=== PATIENT | female | born 1960 | race Caucasian/White ===

== ENCOUNTER 2019-01-25 12:43 | Outpatient (RCR) | payer BC, SELFPAY ==
[2019-01-25 12:57] VITALS: BMI 34.0
== END 2019-04-25 23:59 | disposition home or self-care (01) ==
LOC: ANHDMC 12:43
PROVIDERS: PCP Family Medicine; Visit Provider Surgery
DX: E11.65 Type 2 diabetes mellitus with hyperglycemia (principal); Z71.3 Dietary counseling and surveillance
CPT/HCPCS: 97802

== ENCOUNTER 2019-08-28 00:25 | Outpatient (CLI) | payer BC, SELFPAY ==
[2019-08-28 18:55] LABS: SARS-CoV-2 RNA PCR Negative
== END 2019-08-28 00:26 | disposition home or self-care (01) ==
LOC: ANHCOVIDDT 00:25
PROVIDERS: PCP Family Medicine; Visit Provider Internal Medicine Gastroenterology
DX: Z01.818 Encounter for other preprocedural examination (principal); Z11.59 Encounter for screening for other viral diseases; Z12.11 Encounter for screening for malignant neoplasm of colon
CPT/HCPCS: 87635; C9803; U0003

== ENCOUNTER 2019-08-30 00:49 | Day surgery (SDC) | payer BC, SELFPAY ==
[2019-08-23 13:24] VITALS: BMI 32.4
--- NOTE | 2019-08-30 08:29 | WPDANESEPPF ---
Anes - Initial Pre Proc Eval Procedure: Operation Date: 08/30/19 10:30 Proposed Procedures p Screening Colonoscopy - Mario Moore MD Date/Time: 08/30/19 08:29 Surgeon: Mario Moore MD Pre Op Diagnosis: Neoplasm Screening Patient Data Age: 59 Gender: F Height: 1.7 m Weight: 94 kg Allergies Allergy/AdvReac Type Severity Reaction Status Date / Time No Known Allergies Allergy Verified 08/30/19 09:49 Home Medications Medication Instructions Recorded Confirmed Type exemestane [Aromasin] 25 mg PO DAILY 08/23/19 08/30/19 History levothyroxine [Synthroid] 88 mcg PO DAILY 08/23/19 08/30/19 History ej-qmy-dutok acid-lutein [Adult 1 tablet PO DAILY 08/23/19 08/30/19 History Multivitamin (w-lutein)] Patient hx anesthesia problems: none Family hx anesthesia problems: none PMFSH Past Medical History Medical History (Updated 08/30/19 @ 08:30 by Edwin iKm MD) Cancer breast cancer Diabetes Hypothyroidism Obesity Social History Social History Gender identity (if verbalized by the patient): Female Sexual Orientation (if Verbalized by the Patient): Straight or Heterosexual Spiritual care concerns: No Anes - Eval Final PreProcedure Day of Procedure 08/30/19 08:29 Patient weight: obese Heart: regular rate and rhythm Lungs: clear to auscultation and normal air movement Airway: Mallampati scale class II Neurological: alert and oriented Last oral intake: >/= 8 hours ASA classification: III Emergent: no Anesthetic plan: proceed Anesthesia type and monitoring: general GIVS Informed Consent: The patient's anesthetic plan and its attendant risks and benefits were discussed with the patient/family/POA. Questions were solicited and answers provided to the satisfaction of the patient/family/POA.
[2019-08-30 09:40] VITALS: BP 183/85; PULSE 77; RESP 18; TEMP 36.8; O2SAT 100
[2019-08-30] MEDS: LACTATED RINGERS 1,000 ML 150 ML IV CONT (10:03)
[2019-08-30 10:06] LABS: Glucose Point of Care 93 (65-105)
--- NOTE | 2019-08-30 10:58 | WPDGICN ---
Assessment and Plan Assessment and plan (1) Encounter for screening for colorectal malignant neoplasm: Code(s): Z12.11 - Encounter for screening for malignant neoplasm of colon; Z12.12 - Encounter for screening for malignant neoplasm of rectum Status: Acute Assessment and Plan: plan is for screening colonoscopy today because of age. Also because of family history of colon polyps in mother. Plan is for colonoscopy today may need to repeat colonoscopy in 5 years given her family history of colon polyps. (2) Family history of colonic polyps: Code(s): Z83.71 - Family history of colonic polyps Status: Acute (3) Obesity: Code(s): E66.9 - Obesity, unspecified Status: Acute GI Consult Note Consult date/time: 08/30/19 10:58 HPI: Laureen Thurston is a 59 year old female Seen in evaluation at the request of Dr Albert Palafox. patient presents for neoplasia screening colonoscopy. Her current weight appetite bowel movements are normal. She denies abdominal pain she denies any obvious bleeding. Her bowel habits are regular. Family history is significant that her mother had colon polyps. Patient's past medical history is significant for breast cancer in the past. Review of Systems Review of Systems: All systems reviewed & are unremarkable except as noted in HPI and below PMFSH Past Medical History Medical History Cancer breast cancer Diabetes Hypothyroidism Obesity Social History Social History Gender identity (if verbalized by the patient): Female Sexual Orientation (if Verbalized by the Patient): Straight or Heterosexual Spiritual care concerns: No Meds Home Medications and Allergies Home Medications Medication Instructions Recorded Confirmed Type exemestane [Aromasin] 25 mg PO DAILY 08/23/19 08/30/19 History levothyroxine [Synthroid] 88 mcg PO DAILY 08/23/19 08/30/19 History rr-bby-gtvpe acid-lutein [Adult 1 tablet PO DAILY 08/23/19 08/30/19 History Multivitamin (w-lutein)] Allergies Allergy/AdvReac Type Severity Reaction Status Date / Time No Known Allergies Allergy Verified 08/30/19 09:49 Vital Signs Vital Signs - 24 hr 08/30/19 09:40 Temperature 36.8 C Pulse Rate 77 Respiratory Rate 18 Blood Pressure 183/85 H Pulse Oximetry 100 Exam Narrative: Exam Narrative: Physical exam reveals patient to be alert. Vital signs stable. HEENT exam unremarkable. Lungs are clear to auscultation and percussion. Heart is without murmur or extra sounds. Abdominal exam bowel sounds are present soft nontender with no organomegaly. Digital external rectal exam normal.
[2019-08-30 11:25] VITALS: BP 123/65; PULSE 72; RESP 14; O2SAT 100
[2019-08-30 11:35] VITALS: BP 133/74; PULSE 71; RESP 18; O2SAT 100
[2019-08-30 11:45] VITALS: BP 123/78; PULSE 71; RESP 21; O2SAT 100
[2019-08-30 11:54] VITALS: BP 138/74; PULSE 72; RESP 14; O2SAT 100
== END 2019-08-30 12:04 | disposition home or self-care (01) ==
PROVIDERS: PCP Family Medicine; Visit Provider Internal Medicine Gastroenterology
PROC: 0DJD8ZZ Inspection of Lower Intestinal Tract, Via Natural or Artificial Opening Endoscopic (ICD-10-PCS; CPT 45378; principal; 2019-08-30 10:30)
DX: Z12.11 Encounter for screening for malignant neoplasm of colon (principal); K63.5 Polyp of colon; K64.8 Other hemorrhoids; Z83.71 Family history of colonic polyps; E11.9 Type 2 diabetes mellitus without complications; E03.9 Hypothyroidism, unspecified; E66.9 Obesity, unspecified; Z68.32 Body mass index [BMI] 32.0-32.9, adult; C50.919 Malignant neoplasm of unspecified site of unspecified female breast; Z79.818 Long term (current) use of other agents affecting estrogen receptors and estrogen levels
CPT/HCPCS: 45385; 88305; J2704; J7120

== ENCOUNTER → 2021-05-01 13:12 | Outpatient (CLI) | payer BC, SELFPAY ==
--- NOTE | ~2021-05-01 | DEXA_ITS ---
Bone Density Report Name: CRISTINA WORTHY Age: 61 Sex: Female Ethnicity: White Date of : 1960 Indication: postmenopausal; screening for osteoporosis; parental hip fracture; height loss; cancer; Referring Provider: JOHAN, ARNOLD Study: Bone densitometry was performed. Exam Date: May 01, 2021 Accession number: [id number] Bone Density: Region BMD T-score Z-score Classification AP Spine (L1-L4) 1.120 0.7 2.2 Normal Femoral Neck (Left) 0.671 -1.6 -0.2 Osteopenia Total Hip (Left) 0.967 0.2 1.3 Normal Femoral Neck (Right) 0.714 -1.2 0.2 Osteopenia Total Hip (Right) 0.936 0.0 1.0 Normal Total Hip Mean 0.952 0.1 1.2 Normal World Health Organization criteria for BMD impression classify patients as: Normal (T-score at or above -1.0), Osteopenia (T-score between -1.0 and -2.5), or Osteoporosis (T-score at or below -2.5). 10-year Fracture Risk(1): Major Osteoporotic Fracture 16% Hip Fracture 0.8% Reported Risk Factors: [place] (), Neck BMD=0.671, BMI=37.2, parental fracture (1) FRAX(R) Version 3.08. Fracture probability calculated for an untreated patient. Fracture probability may be lower if the patient has received treatment. Previous Exams: Region Exam Age BMD T-score BMD Change BMD Change Date g/cm2 vs Baseline vs Previous AP Spine(L1-L4) 05/01/2021 61 1.120 0.7 0.039* 0.039* 01/20/2017 56 1.081 0.3 Total Hip(Left) 05/01/2021 61 0.967 0.2 0.006 0.021 01/25/2019 58 0.946 0.0 -0.015 -0.015 01/20/2017 56 0.961 0.2 Total Hip(Right) 05/01/2021 61 0.936 0.0 -0.007 0.029* 01/25/2019 58 0.908 -0.3 -0.035* -0.035* 01/20/2017 56 0.943 0.0 *Denotes significance at 95% confidence level, LSC for AP Spine = 0.022 g/cm2, LSC for Total Hip = 0.027 g/cm2 Clinical Information Provided by Patient: Parent has had a hip fracture Has used the following medications: Vitamin D, Calcium Has the following medical conditions: Cancer Patient maximum height was 68.5 Menopause Age: 49 No regular weight bearing exercise Drinks caffeinated beverages Onset of menses at age 12 Number of children 1 Impression: The patient has low bone mass, based on the Left Femoral Neck T-score. The patient has an estimated ten-year risk of hip fracture of 0.8% and an estimated ten-year risk of major fracture of 16%, based on
== END ==
PROVIDERS: PCP Family Medicine; Visit Provider Nurse Practitioner
DX: Z78.0 Asymptomatic menopausal state (principal); M85.852 Other specified disorders of bone density and structure, left thigh; M85.851 Other specified disorders of bone density and structure, right thigh
CPT/HCPCS: 77080

== ENCOUNTER 2023-07-22 13:08 | Outpatient (CLI) | payer OTHER, SELFPAY ==
--- NOTE | ~2023-07-22 | DEXA_ITS ---
Bone Density Report Name: CRISTINA WORTHY Age: 63 Sex: Female Ethnicity: White Date of : 1960 Indication: postmenopausal; screening for osteoporosis; parental hip fracture; height loss; Referring Provider: JOHAN, ARNOLD Study: Bone densitometry was performed. Exam Date: July 22, 2023 Accession number: [id number] Bone Density: Region BMD T-score Z-score Classification AP Spine (L1-L4) 1.062 0.1 1.9 Normal Femoral Neck (Left) 0.648 -1.8 -0.3 Osteopenia Total Hip (Left) 0.966 0.2 1.4 Normal Femoral Neck (Right) 0.715 -1.2 0.3 Osteopenia Total Hip (Right) 0.944 0.0 1.2 Normal Total Hip Mean 0.955 0.1 1.3 Normal World Health Organization criteria for BMD impression classify patients as: Normal (T-score at or above -1.0), Osteopenia (T-score between -1.0 and -2.5), or Osteoporosis (T-score at or below -2.5). 10-year Fracture Risk(1): Major Osteoporotic Fracture 17% Hip Fracture 1.0% Reported Risk Factors: [place] (), Neck BMD=0.648, BMI=35.5, parental fracture (1) FRAX(R) Version 3.08. Fracture probability calculated for an untreated patient. Fracture probability may be lower if the patient has received treatment. Previous Exams: Region Exam Age BMD T-score BMD Change BMD Change Date g/cm2 vs Baseline vs Previous AP Spine(L1-L4) 07/22/2023 63 1.062 0.1 -0.020 -0.058* 05/01/2021 61 1.120 0.7 0.039* 0.039* 01/20/2017 56 1.081 0.3 Total Hip(Left) 07/22/2023 63 0.966 0.2 0.005 -0.001 05/01/2021 61 0.967 0.2 0.006 0.021 01/25/2019 58 0.946 0.0 -0.015 -0.015 01/20/2017 56 0.961 0.2 Total Hip(Right) 07/22/2023 63 0.944 0.0 0.002 0.008 05/01/2021 61 0.936 0.0 -0.007 0.029* 01/25/2019 58 0.908 -0.3 -0.035* -0.035* 01/20/2017 56 0.943 0.0 *Denotes significance at 95% confidence level, LSC for AP Spine = 0.022 g/cm2, LSC for Total Hip = 0.027 g/cm2 Clinical Information Provided by Patient: Parent has had a hip fracture Has used the following medications: Vitamin D, Calcium Patient maximum height was 68.5 Menopause Age: 49 No regular weight bearing exercise Drinks caffeinated beverages Onset of menses at age 12 Number of children 1 Impression: The patient has low bone mass, based on the Left Femoral Neck T-sc
== END 2023-07-22 13:09 ==
LOC: MICIMG 13:09
PROVIDERS: PCP Family Medicine; Visit Provider Nurse Practitioner
DX: M85.89 Other specified disorders of bone density and structure, multiple sites (principal); Z13.820 Encounter for screening for osteoporosis
CPT/HCPCS: 77080

== ENCOUNTER 2024-08-24 11:07 | Outpatient (CLI) | payer MEDICARE, SELFPAY ==
[2024-08-24 11:45] LABS: Basophils Percent Auto 0.4 % (0.2-1.2); Eosinophils Absolute Auto 0.1 K/mm3 (0-0.3); Eosinophils Percent Auto 1.1 % (0-4.4); Hemoglobin 12.7 g/dL (12.0-15.0); Immature Granulocyte Absolute 0.03 K/mm3 (0.00-0.031); Immature Granulocyte Percent A 0.4 % (0-0.5); Lymphocytes Percent Auto 15.8 % (18.3-44.2); Mean Corpuscular HGB Conc 31.8 g/dl (32-36); Mean Corpuscular Hemoglobin 26.6 pg (26-34); Mean Corpuscular Volume 83.7 fl (80-100); Mean Platelet Volume 9.2 fl (7.4-10.4); Monocytes Absolute Auto 0.5 K/mm3 (0.1-0.6); Monocytes Percent Auto 6.6 % (2.6-8.5); Neutrophils Absolute Auto 5.3 K/mm3 (1.3-6.7); Neutrophils Percent Auto 75.7 % (45.5-73.1); Platelet Count Result 190 k/mm3 (150-375); Red Blood Count 4.78 M/mm3 (4.2-5.4); Red Cell Distribution Width 14.1 % (11.5-14.5)
[2024-08-24 11:56] LABS: Alanine Aminotransferase 37 U/L (6-35); Albumin Level 4.4 g/dL (3.5-5.1); Alkaline Phosphatase 60 U/L (38-126); Anion Gap 6 mmol/L (4-12); Aspartate Amino Transferase 39 U/L (14-36); Bilirubin,Total 0.8 mg/dL (0.2-1.3); Blood Urea Nitrogen 14 mg/dL (7-17); Calcium 9.9 mg/dL (8.4-10.2); Carbon Dioxide 26 mmol/L (22-30); Chloride 106 mmol/L (98-107); Estimated Glomerular Filt Rate > 60; Glucose 128 mg/dL (65-110); Potassium 4.3 mmol/L (3.4-5.0); Sodium 138 mmol/L (137-145); Total Protein 7.5 g/dL (6.3-8.2)
[2024-08-24 12:00] LABS: Iron 76 ug/dL (37-170)
[2024-08-24 12:12] LABS: Percent Iron Saturation 20 % (20-50)
[2024-08-24 12:46] LABS: Erythrocyte Sedimentation Rate 9 mm/hr (0-20)
== END 2024-08-24 11:08 | disposition home or self-care (01) ==
PROVIDERS: PCP Family Medicine
DX: E11.9 Type 2 diabetes mellitus without complications (principal); R53.83 Other fatigue; Z83.2 Family history of diseases of the blood and blood-forming organs and certain disorders involving the immune mechanism
CPT/HCPCS: 36415; 80053; 82728; 83540; 83550; 85025; 85652

== ENCOUNTER 2024-12-20 00:45 | Day surgery (SDC) | payer MEDICARE, SELFPAY ==
[2024-12-14 12:20] VITALS: BMI 35.5
--- OUTSIDE RECORDS SUMMARY | 2024-12-20 00:48 | XMS_ITS | Encounter Summary ---
Author Organization [facility] Address [address] [place] [address] Phone Care Team Providers Care Barmaid Name Role Phone Albert Palafox MD Primary Care Provider [phone] Yoon Houser MD Unavailable [phone] Maria Teresa Sevilla MD Unavailable Gaby Valdovinos PhD Unavailable [phone] Pippa Miller MD PhD Unavaila ble Jeremy Rutledge MD Unavailable [phone] Encounter Details Date Type Department Care Team (Latest Contact Info) Description 05/01/2021 Orders Only [facility] Scanning, Provider Social History Tobacco Use Types Packs/Day Years Used Date Smoking Tobacco: Former Cigarettes Q uit: 1994 Smokeless Tobacco: Never Comments:quit 25-30 years ag o from 2019 Alcohol Use Standard Drinks/Week Comments Never 0 (1 standard drink = 0.6 oz pur e alcohol) AUDIT-C Answer Date Recorded Frequency of Alcohol Consumption Never 02/08/2019 Average Number of Drinks Not on file 019 Frequency of Binge Drinking Not on file 07/2018 Comments No Sex and Gender Information Value Date Recorded Sex Assigned at Not on file 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 Gender Identity Not on file Sexual Orientation Not on file documented as of this encounter Plan of Treatment Not on file documented as of this encounter Procedures Procedure Name Priority Date/Time Associated Diagnosis Comments SCAN - RADIOLOGY/IMAGING 05/01/2021 documented in this encounter Results * SCAN - RADIOLOGY/IMAGING (05/01/2021) Anatomical Region Laterality Modality Other us Provider Scanning Final Result documented in this encounter Visit Diagnoses Not on filedocumented in this encounter Care Teams Barmaid Relationship Specialty Start Date End Date Albert Palafox MD [address] [place] [address] PCP - General Family Medicine 08/19/16 MikYoon MD [address] [place] [address] Surgeon Breast Surgery 08/11/17 Maria Teresa Sevilla MD [address] [facility] [address] [place] [address] Radiation Oncologist Radiation Oncology 08/11/17 Gaby Valdovinos, PhD [address] [place] [address] Nurse Practitioner Radiation Oncology 08/11/17 Pippa Miller MD PhD [address] [facility] [address] [place] [address] Surgeon Surgical Oncology 12/15/17 07/08/21 Jeremy Rutledge MD [address] [place] [address] [place] [address] Consulting Physician Endocrinology 02/08/19 documented as of this encounter
--- OUTSIDE RECORDS SUMMARY | 2024-12-20 00:48 | XMS_ITS ---
Author Organization [facility] Address [address] [place] [address] Phone Care Team Providers Care Shoe Parts Molder Name Role Phone Albert Palafox MD Primary Care Provider [phone] Yoon Houser MD Unavailable [phone] Maria Teresa Sevilla MD Unavailable Gaby Valdovinos PhD Unavailable [phone] Jeremy Rutledge MD Unavailable [phone] Active Problems Problem Noted Date Diagnosed Date Fatigue 10/25/2024 Assessment & Plan (10/25/2024 3:07 PM CDT): Chronic problem. Having issues with fatigue. Reports normal CBC from PCP. Would like other labs done. Poor sleep scheduled. Goes to bed late 1230-1a & up 630am.has to take care of her mom before going to work. Taking D3 1000IU daily. Body mass index (BMI) 37.0-37.9, adult Encounter for monitoring aromatase inhibitor the rapy 05/26/2021 Encounter for screening mammogram for breast can cer 05/26/2021 Type 2 diabetes mellitus wit hout complication, without long-term current use of insulin 03/27/2020 Assessment & Plan (10/25/2024 2:46 PM CDT): Chronic problem. A1c remains well controlled on diet only at 6.3%. (decreased from 6.4% 2/20/25). UTD on DM eye exam (06/29/24 no DMR/DME [facility]). Will update labs. Does not mychart. Verified phone #/address to contact re: results. Discussed with Laureen Thurston: Strive for regular exercise (30min most days) and diet (get at least 4-5 servings of fruit and veggies daily, avoid processed foods, increase lean protein intake and decrease carb portions as well as fruit juices, regular soda & desserts). Watch carbs and simple sugars. Check the feet daily for skin breakdown and infection. Assessment & Plan (04/26/2024 2:54 PM SAP BODS DEVELOPER): Chronic problem. A1c remains well controlled on diet only at 6.4%. (increased from 6.1% 10/14/23). UTD on DM eye exam (06/16/23 no DMR/DME [facility]). Will update labs. Does not mychart. Verified phone #/address to contact re: results. Discussed with Laureen Thurston: Strive for regular exercise (30min most days) and diet (get at least 4-5 servings of fruit and veggies daily, avoid processed foods, increase lean protein intake and decrease carb portions as well as fruit juices, regular soda & desserts). Watch carbs and simple sugars. Check the feet daily for skin breakdown and infection. Assessment & Plan (10/14/2023 10:41 AM CDT): Chronic problem. A1c remains well controlled on diet only at 6.1%. improved from 6.3% 04/07/23. DM eye exam sometime this year at [facility]; letter sent to get copy of report. Had DM eye exam 04/09/22 no DMR/DME. UTD on labs. Discussed with Laureen Thurston: Strive for regular exercise (30min most days) and diet (get at least 4-5 servings of fruit and veggies daily, avoid processed foods, increase lean protein intake and decrease carb portions as well as fruit juices, regular soda & desserts). Watch carbs and simple sugars. Check the feet daily for skin breakdown and infection. Assessment & Plan (04/07/2023 1:42 PM SAP BODS DEVELOPER): Hba1c was Lab Results Component Value Date HGBA1C 6.3 04/07/2023 today, indicating adequate DM control Goal Hba1c under 7 and blood glucose level in the 120-160 range was explained Low carb diet and daily aerobic and /or resistant exercise were advised Sensorineural hearing loss (SNHL) of both ears 1 04/05/2019 custodial (current) use of aromatase inhibitors 10/10/2018 Personal history of malignant neoplasm of breast 09/27/2018 Encounter for follow-up surveillance of breast c ancer 12/15/2017 Abnormal mammogram 03/02/2017 Malignant neoplasm of upper- inner quadrant of left breast in female, estrogen receptor positive 02/14/2017 Cancer Staging:Pathologic stage from 05/04/2017:Stage IA(pT1b, pN0(sn), cM0, G1, ER: Positive, MO: Positive, HER2: Negative) - Signed by Maria Teresa Sevilla MD on 08/11/2017 Primary hypothyroidism 09/23/2016 Overview (09/23/2016): Due to Diane's thyroiditis. Assessment & Plan (10/25/2024 2:45 PM CDT): Chronic problem. Clinically & biochemically euthyroid on current Synthroid 88mcg daily. Aware to take 1st thing in morning, 30-60 minutes before food/drink/other medications. Will update labs. Does not mychart. Verified phone #/address to contact re: results. Assessment & Plan (04/26/2024 2:53 PM SAP BODS DEVELOPER): Chronic problem. Clinically & biochemically euthyroid on current Synthroid 88mcg daily. Aware to take 1st thing in morning, 30-60 minutes before food/drink/other medications. Will update labs. Does not mychart. Verified phone #/address to contact re: results. Assessment & Plan (10/14/2023 10:40 AM CDT): Chronic problem. Clinically & biochemically euthyroid on current Synthroid 88mcg daily. Aware to take 1st thing in morning, 30-60 minutes before food/drink/other medications. Assessment & Plan (04/07/2023 1:42 PM SAP BODS DEVELOPER): Chronic, stable Update TFTs Will adjust dose of Synthroid if indicated Non-toxic multinodular goiter 09/23/2016 Overview (09/23/2016): Stable in size since 2005 with last Ultrasound in 2015. 11 mm nodule on the right lobe and isthmus. Current Treatment and Therapy Plans No current plan information found. Past Treatment and Therapy Plans Line Care Plan Name Start Date Discontinue Date Treatment Medications Discontinue Reason Plan Provider IV MAINTENANCE THERAPY PLAN 10/26/2018 05/17/2023 No medications scheduled. Automatic discontinuation of dormant plans Yoon Houser MD Oncology Supportive Care Therapy Plan Plan Name Start Date Discontinue Date Treatment Medications Discontinue Reason Plan Provider ZOLEDRONIC ACID (ZOMETA) INFUSION 10/26/2018 05/17/2023 No medications scheduled. Automatic discontinuation of dormant plans Yoon Houser MD Resolved Problems Problem Noted Date Diagnosed Date Resolved Date Sudden left hearing loss 01/18/2020
--- OUTSIDE RECORDS SUMMARY | 2024-12-20 00:48 | XMS_ITS | Clinical Summary ---
Author Organization [facility] Address [address] [place] [address] Phone Care Team Providers Care Gifts Officer Name Role Phone Albert Palafox MD Primary Care Provider [phone] Yoon Houser MD Unavailable Maria Teresa Sevilla MD Unavailable Gaby Valdovinos PhD Unavailable [phone] Jeremy Rutledge MD Unavailable [phone] Allergies No known active allergies Medications biotin 1,000 mcg tablet,chewable daily. Acti ve calcium carbonate-vitamin D3 1,500 mg (600mg elemental) -800 unit per tablet daily Acti ve flaxseed oil 1,000 mg capsule TAKE DIRECTED. Active garlic capsule TAKE DIRECTED. Active glucosam-chondroiti n-diet cb25 116-100 mg capsule TAKE DIRECTED. Active ibuprofen (ADVIL,MOTRIN) 400 mg tablet as needed Active lysine 500 mg tablet TAKE DIRECTED. Active magnesium oxide (MAG-OX) 250 mg (150.8 mg elemental) tablet Ac tive multivitamin tabletIndications:V itamin Deficiency Prevention daily. Active ascorbic acid, vitamin C, 500 mg capsule TAKE DIRECTED. Active clotrimazole-betame thasone (LOTRISONE) cream APPLY TO AFFECTED AREA PRN 2 8 Active acetaminophen (TYLENOL) 500 mg tablet Take 1 tablet (500 mg total) by mouth every 6 (six) hours as needed for pain Active cholecalciferol (VITAMIN D-3) 1,000 unit capsule Take 1 capsule (1,000 Units total) by mouth daily Active cyclobenzaprine (FLEXERIL) 10 mg tablet TAKE 1 TABLET BY MOUTH EVERY DAY AT BEDTIME NEEDED 1 Active potassium gluconate 595 mg (99 mg) tablet 1 tablet (595 mg total) Active ubidecarenone (coenzyme Q10) 100 mg tablet Take by mouth Active Synthroid 88 mcg tabletIndications:P rimary hypothyroidism TAKE 1 TABLET(88 MCG) BY MOUTH DAILY 90 tablet 3 5 Active lisinopriL (PRINIVIL,ZESTRIL) 10 mg tablet Take 1 tablet (10 mg total) by mouth daily 5 Active Active Problems Problem Noted Date Diagnosed Date Fatigue 10/25/2024 Assessment & Plan (10/25/2024 3:07 PM CDT): Chronic problem. Having issues with fatigue. Reports normal CBC from PCP. Would like other labs done. Poor sleep scheduled. Goes to bed late 1230-1a & up 630am.has to take care of her mom before going to work. Taking D3 1000IU daily. Body mass index (BMI) 37.0-37.9, adult 5 Encounter for monitoring aromatase inhibitor the rapy 05/26/2021 Encounter for screening mammogram for breast can cer 05/26/2021 Type 2 diabetes mellitus wit hout complication, without long-term current use of insulin 03/27/2020 Assessment & Plan (10/25/2024 2:46 PM CDT): Chronic problem. A1c remains well controlled on diet only at 6.3%. (decreased from 6.4% 04/26/24). UTD on DM eye exam (06/29/24 no [facility]MR[facility] Will update labs. Does not mychart. Verified [...] infection. Assessment & Plan (04/26/2024 2:54 PM AUTO CRANE DRIVER): Chronic problem. A1c remains well controlled on diet only at 6.4%. (increased from 6.1% 10/14/23). UTD on DM eye exam (06/16/23 no DMR/DME [facility]). Will update labs. Does not mychart. Verified [...] DM eye exam sometime this year at [facility]; letter sent to get copy of report. [...] infection. Assessment & Plan (04/07/2023 1:42 PM AUTO CRANE DRIVER): Hba1c was Lab Results Component Value Date HGBA1C 6.3 04/07/2023 today, indicating adequate DM control Goal Hba1c under 7 and blood glucose level in the 120-160 range was explained Low carb diet and daily aerobic and /or resistant exercise were advised Sensorineural hearing loss (SNHL) of both ears 1 04/05/2019 shelter (current) use of aromatase inhibitors 10/10/2018 Personal history of malignant neoplasm of breast 09/27/2018 Encounter for follow-up surveillance of breast c ancer 12/15/2017 Abnormal mammogram 03/02/2017 Malignant neoplasm of upper- inner quadrant of left breast in female, estrogen receptor positive 02/14/2017 Cancer Staging:Pathologic stage from 05/04/2017:Stage IA(pT1b, pN0(sn), cM0, G1, ER: Positive, CT: Positive, HER2: Negative) - Signed by MariaT eresa Sevilla MD on 08/11/2017 Primary hypothyroidism 09/23/2016 Overview (09/23/2016): Due to Diane's thyroiditis. Assessment & Plan (10/25/2024 2:45 PM CDT): Chronic problem. Clinically & biochemically euthyroid on current Synthroid 88mcg daily. Aware to take 1st thing in morning, 30-60 minutes before food/drink/other medications. Will update labs. Does not mychart. Verified phone #/address to contact re: results. Assessment & Plan (04/26/2024 2:53 PM AUTO CRANE DRIVER): Chronic problem. Clinically & biochemically euthyroid on [...] medications. Assessment & Plan (04/07/2023 1:42 PM AUTO CRANE DRIVER): Chronic, stable Update TFTs Will adjust dose of Synthroid if indicated Non-toxic multinodular goiter 09/23/2016 Overview (09/23/2016): Stable in size since 2005 with last Ultrasound in 2016. 11 mm nodule on the right lobe and isthmus. Resolved Problems Problem Noted Date Diagnosed Date Resolved Date Sudden left hearing loss 01/18/2020 Encounters Date Type Department Care Team Description 11/29/2024 1:00 PM CDT Office Visit [facility] Advanced Medicine Radiation Oncology [address] [place] [address] Maria Teresa Sevilla MD Malignant neoplasm of upper-inner quadrant of left breast in female, estrogen receptor positive (HCC) [C50.212, Z17.0] (Primary Dx) 11/06/2024 Results Follow-Up [facility] Diabetes and Endocrinology [address] [place] [id number] Tika Benítez NP Vitamin D 25 hydroxy, Vitamin B12, T4, free, Additional followed-up results: 2 10/25/2024 2:30 PM CDT Office Visit [facility] Diabetes and Endocrinology [address] [place] [phone] Tika Benítez NP Type 2 diabetes mellitus without complication, without long-term current use of insulin (HCC) (Primary Dx); Primary hypothyroidism; Fatigue, unspecified type; Body mass index (BMI) 37.0-37.9, adult from Last 3 Months Immunizations Immunization Administration Dates Next Due Influenza, Quadrivalent, Lashaun l Culture-based MDCK, Preservative Free, Antibiotic Free, Intramuscular 12/14/2018 Influenza, Quadrivalent, Spl it, Preservative Free, Intramuscular 11/29/2019,12/20/2017,12/19/2017 Influenza, Trivalent, IM (MDV) 5,12/20/2013,12/31/2012,12/29 Pfizer SARS-CoV-2 Monovalent Vaccination (12+ Yrs) PURPLE 06/26/2020,06/05/2020 Pneumococcal Conjugate PCV 13 11/07/2018 Tdap 12/30/2014 ZOSTER Recombinant 01/19/2018,11/17/2017, 018 Surgical History Surgery Date Site/Laterality Comments SECTION BREAST BIOPSY BREAST LUMPECTOMY Medical History Medical History Date Comments Personal history of malignan t neoplasm of breast History of malignant neoplas m of breast - (Added by TW Conv) Malignant neoplasm of left f emale breast (HCC) Malignant neoplasm of left b reast in female, estrogen receptor positive, unspecified site of breast - (Added by TW Conv) Obesity Hypothyroidism MAURY (obstructive sleep apnea) Diabetes mellitus History of radiation therapy Family History Medical History Relation Name Comments Skin cancer Father Prostate cancer Father's Brother Breast cancer Mother Endometrial cancer Neg Hx Ovarian cancer Neg Hx Pancreatic cancer Neg Hx Relation Name Status Comments Father Father's Brother Mother Social History Tobacco Use Types Packs/Day Years [...] on file Legal 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 Gender Identity Not on file Sexual Orientation Not on file Obstetrics History Para Term AB IAB SAB Ectopic Multiple Livin g Live Births 1 1 1 Date Outcome GA Total Labor Labor/2nd/3rd Weight Sex Type Anes PTL Radha A1 A5 Name Clin Term Last Filed Vital Signs Vital Sign Reading Time Taken Comments Blood Pressure 124/68 10/25/2024 3:03 PM CDT Pulse 80 07/20/2024 1:53 PM CDT Temperature 36.7 C (98 F) 07/20/2024 1:53 PM CDT Respiratory Rate 18 10/25/2024 2:36 PM CDT Oxygen Saturation 98% 07/20/2024 1:53 PM CDT Inhaled Oxygen Concentration - - Weight 107.8 kg (237 lb 9.6 oz) 10/25/2024 2:36 PM CDT Height 168.9 cm (5' 6.5) 10/25/2024 2:36 PM CDT Body Mass Index 37.78 10/25/2024 2:36 PM CDT Plan of Treatment Health Maintenance Due Date Last Done Comments Cervical Cancer Screening 1959 Colon Cancer Screening-Colonoscopy 1959 Fall Risk Assessment 1959 Hepatitis C Screening 1959 Osteoporosis Screening-Bone Density Scan 1959 Hepatitis B Screening 1977 Depression Screening 09/22/2018 09/22/2017, 09/22/2017, 09/23/2016 Pneumococcal vaccine 65+ (2 of 2 - PPSV23, PCV20, or PCV21) 01/02/2019 11/07/2018 Well Visit 65+ 02/22/2024 Covid-19 Vaccine (3 - 2024-2 6 season) 2024 06/26/2020, 06/05/2020 Influenza Vaccine (#1) 2024 , 12/14/2018, 12/20/2017, Additional history exists DTaP/Tdap/Td Vaccine (2 - Td or Tdap) 12/30/2024 12/30/2014 Albumin Creatinine Ratio, Urine 04/26/2025 04/26/2024, 04/14/2023, 09/18/2020 eGFR 04/26/2025 04/26/2024, 02/0 10/2023, 11/27/2021, Additional history exists Hemoglobin A1C 04/27/2025 10/25/2024, 02/2 , 10/14/2023, Additional history exists Breast Cancer Screening-Mammogram 07/20/2025 07/20/2024, 06/17/2023, 05/28/2022, Additional history exists Foot Exam 10/25/2025 10/25/2024, 08/0 11/2023, 10/07/2022, Additional history exists Lipid Panel 11/02/2025 11/02/2024, 02/2 , 04/14/2023, Additional history exists Dilated Eye Exam 06/29/2026 06/29/2024, 01/2024, 04/09/2022, Additional history exists Zoster Vaccine Completed 01/19/2018, 11/05, 11/16/2017 Procedures Procedure Name Priority Date/Time Associated Diagnosis Comments LIPID PANEL Routine 11/02/2024 2:04 PM CDT Type 2 diabetes mellitus without complication, without long-term current use of insulin (HCC) TSH Routine 11/02/2024 2:04 PM CDT Primary hypothyroidism T4, FREE Routine 11/02/2024 2:04 PM CDT Primary hypothyroidism VITAMIN B12 Routine 11/02/2024 2:04 PM CDT Fatigue, unspecified type VITAMIN D 25 HYDROXY Routine 11/02/2024 2:04 PM CDT Fatigue, unspecified type Body mass index (BMI) 37.0-37.9, adult POCT GLUCOSE Routine 10/25/2024 2:36 PM CDT Type 2 diabetes mellitus without complication, without long-term current use of insulin (HCC) POCT HEMOGLOBIN A1C Routine 10/25/2024 2:36 PM CDT Type 2 diabetes mellitus without complication, without long-term current use of insulin (HCC) SCREENING MAMMOGRAM BILATERAL W JUAN Schedule Routine, Read Routine (OP Routine) 07/20/2024 12:04 PM CDT Encounter for screening mammogram for breast cancer HM DIABETES EYE EXAM Routine 06/29/2024 10:10 AM CDT EGFR Routine 04/26/2024 3:11 PM AUTO CRANE DRIVER Type 2 diabetes mellitus without complication, without long-term current use of insulin (HCC) ALBUMIN CREATININE RATIO, URINE Routine 04/26/2024 3:11 PM AUTO CRANE DRIVER Type 2 diabetes mellitus without complication, without long-term current use of insulin (HCC) from Last 3 Months or Most Recently Relevant to Health Maintenance Results * Vitamin D 25 hydroxy (11/02/2024 2:04 PM CDT) Pathologist [facility] Vitamin D 25-OH 57 30 - 100 ng/mL [facility] Comment: Vitamin D Status 25-OH Vitamin D: Deficiency: <20 ng/mL Insufficiency: 20 - 29 ng/mL Optimal: > or = 30 ng/mL For 25-OH Vitamin D testing on patients on D2-supplementation and patients for whom quantitation of D2 and D3 fractions is required, the QuestAssureD(TM) 25-OH VIT D, (D2,D3), LC/MS/MS is recommended: order code 32770 (patients >2yrs). See Note 1 Note 1 For additional information, please refer to http://education.Talentwire/faq/PES951 (This link is being provided for informational/ educational purposes only.) Blood 11/02/2024 2:04 PM CDT 11/02/2024 2:05 PM CDT Narrative [facility] - 11/03/2024 5:40 AM CDT FASTING:NO FASTING: NO Tika Benítez NP LAB BLOOD ORDERABLES Gavi l Result Performing Organization Address City/[facility]/ZIP Co de Phone Number [facility] [address] [place] [address] * TSH (11/02/2024 2:04 PM CDT) TSH 2.11 0.40 - 4.50 mIU/L [facility] Blood 11/02/2024 2:04 PM CDT 11/02/2024 2:05 PM CDT Narrative [facility] - 11/03/2024 5:40 AM CDT FASTING:NO FASTING: NO Tika Benítez NP LAB BLOOD ORDERABLES Gavi l Result [facility] [address] [place] [address] * T4, free (11/02/2024 2:04 PM CDT) Free T4 1.3 0.8 - 1.8 ng/dL [facility] Blood 11/02/2024 2:04 PM CDT 11/02/2024 2:05 PM CDT Narrative [facility] - 11/03/2024 5:40 AM CDT FASTING:NO FASTING: NO us Tika R. Schleeper MILL TENDER SECOND OPERATOR LAB BLOOD ORDERABLES Gavi l Result [facility] [address] [place] [address] * Vitamin B12 (11/02/2024 2:04 PM CDT) Pathologist [facility] Vitamin B12 476 200 - 1,100 pg/mL [facility] Blood 11/02/2024 2:04 PM CDT 11/02/2024 2:05 PM CDT Narrative [facility] - 11/03/2024 5:40 AM CDT FASTING:NO FASTING: NO Tika Benítez MILL TENDER SECOND OPERATOR LAB BLOOD ORDERABLES Gavi l Result Performing Organization Address City/[facility]/ZIP Co de Phone Number [facility] [address] [place] [address] * (ABNORMAL) Lipid panel (11/02/2024 2:04 PM CDT) Pathologist [facility] Cholesterol 196 <200 mg/dL [facility] HDL 66 > OR = 50 mg/dL [facility] Triglycerides 118 <150 mg/dL [facility] LDL 107(H) mg/dL (calc) [facility] Comment: Reference range: <100 Desirable range <100 mg/dL for primary prevention; <70 mg/dL for patients with CHD or diabetic patients with > or = 2 CHD risk factors. LDL-C is now calculated using the Ivory calculation, which is a validated novel method providing better accuracy than the Friedewald equation in the estimation of LDL-C. Esteban SANFORD et al. DEJUAN. 2013;310(19): 0976-3918 (http://education.Obvious.KeepTrax/faq/HAO505) Chol/HDL ratio 3.0 <5.0 (calc) [facility] Non-HDL, (LDL+VLDL) 130(H) <130 mg/dL (calc) [facility] Comment: For patients with diabetes plus 1 major ASCVD risk factor, treating to a non-HDL-C goal of <100 mg/dL (LDL-C of <70 mg/dL) is considered a therapeutic option. Blood 11/02/2024 2:04 PM CDT 11/02/2024 2:05 PM CDT Narrative [facility] - 11/03/2024 5:40 AM CDT FASTING:NO FASTING: NO us Tika Benítez NP LAB BLOOD ORDERABLES Gavi l Result [facility] [address] [place] [address] * (ABNORMAL) POCT hemoglobin A1c (10/25/2024 2:36 PM CDT) Hemoglobin A1C, POC 6.3(A) 4.0 - 5.6 % Capillary blood 10/25/2024 2 :36 PM CDT us Tika Benítez NP POINT OF CARE TEST ORDERA BLES Final Result * (ABNORMAL) POCT glucose (10/25/2024 2:36 PM CDT) Glucose Blood, POC 121 Normal Fasting 70 - 100, Random <200 mg/dL Comment:PPG 4 Hrs Blood 10/25/2024 2:36 PM CDT us Tika Benítez NP POINT OF CARE TEST ORDERA BLES Final Result * Screening Mammogram Bilateral W Juan (07/20/2024 12:04 PM CDT) Anatomical Region Laterality Modality Breast Bilateral Mammography Impressions 07/20/2024 1:00 PM CDT Bilateral No evidence of malignancy in either breast. OVERALL BI-RADS FINAL ASSESSMENT: 2 - Benign RECOMMENDATIONS: Recommend left breast annual screening mammography. Narrative 07/20/2024 1:00 PM CDT EXAMINATION: Screening Mammogram Bilateral W Juan: 07/20/2024 COMPARISON: Relevant prior studies available at the time of interpretation were reviewed. TECHNIQUE: Mammography was performed with 2D and digital breast tomosynthesis (DBT) images. CAD was utilized. BREAST PARENCHYMAL COMPOSITION: There are scattered areas of fibroglandular density. FINDINGS: Left 1) Post-Surgical Finding: There are post-surgical findings from a previous lumpectomy seen in the upper inner quadrant of the left breast. There has been no interval development of a suspicious finding. This finding is benign. There is no suspicious mass, calcification, or architectural distortion. Right There is no suspicious mass, calcification, or architectural distortion. us Aurora Dean NP IMG MAMMO PROCEDURES Final Result * DIABETES EYE EXAM (06/29/2024 10:10 AM CDT) Historical Provider HEALTH MAINTENANCE Final Result * eGFR (04/26/2024 3:11 PM AUTO CRANE DRIVER) eGFR 81 >=60 mL/min/1. 73 m2 Comment: Interpretive Data Reference Interval Normal >/= 90 mL/min/1.73m2 Mildly decreased* 60 - 89 mL/min/1.73m2 Mildly to moderately decreased 45 - 59 mL/min/1.73m2 Moderately to severely decreased 30 - 44 mL/min/1.73m2 Severely decreased 15 - 29 mL/min/1.73m2 Kidney Failure < 15 mL/min/1.73m2 *Relative to young adult level Estimated glomerular filtration rate is determined by the 2020 CKD-EPI equation recommended by the National Kidney Foundation (A Unifying Approach to GFR Estimation: Recommendations of the NKF-ASK Task Force on Reassessing the Inclusion of Race in Diagnosing Kidney Disease, JASN 2020). The CKD-EPI equation should not be used for patients with unstable renal function and has not been validated in children and those over 70. Current interpretive data was last reviewed 2021. Blood 04/26/2024 3:11 PM AUTO CRANE DRIVER 04/26/2024 10:23 PM AUTO CRANE DRIVER us Tika Benítez NP LAB BLOOD ORDERABLES Gavi l Result [facility] [address] Department [place] [address] * Albumin Creatinine Ratio, Urine (04/26/2024 3:11 PM AUTO CRANE DRIVER) Albumin Ur <12.0 mg/L Comment: Interpretive Data No reference range established. Current interpretive data was last revised 2018. Creatinine Ur 38.8 mg/dL [facility] Comment: Interpretive Data No reference range established. Current interpretive data was last revised 2018. Albumin Creatinine Ratio, Ur See Comment 1 - 29 [facility] Comment:Unable to calculate Urine 04/26/2024 3:11 PM AUTO CRANE DRIVER 04/26/2024 10:21 PM AUTO CRANE DRIVER us Tika Benítez NP LAB URINE ORDERABLES Gavi diaz Result [facility] [address] Department [place] [address] from Last 3 Months or Most Recently Relevant to Health Maintenance Insurance MEDICARE [facility] MEDICARE [facility] MEDICARE [employer]ERCIAL GENERIC Care Teams Gifts Officer Relationship Specialty Start Date End Date Albert Palafox MD [address] [place] [address] PCP - General Family Medicine 08/19/16 PainterYoon wells MD [address] [place], [place] [address] Surgeon Breast Surgery 08/11/17 Maria Teresa Sevilla MD [address] [place] [address] Radiation Oncologist Radiation Oncology 08/11/17 Gaby Valdovinos, PhD [address] [place] [address] Nurse Practitioner Radiation Oncology 08/11/17 Jeremy Rutledge MD [address] [place] [address] [address] Consulting Physician Endocrinology 02/08/19
--- OUTSIDE RECORDS SUMMARY | 2024-12-20 00:48 | XMS_ITS | Encounter Summary ---
Author Organization [facility] Address [address] [place] [address] Phone Care Team Providers Care Cashier Office Name Role Phone Albert Palafox MD Primary Care Provider [phone] Yoon Houser MD Unavailable [phone] Maria Teresa Sevilla MD Unavailable Gaby Valdovinos PhD Unavailable [phone] Pippa Miller MD PhD Unavaila ble Atilio Mccray MD Unavailable [phone] Rhiannon Wmoack NP Unavailable [phone] Jeremy Rutledge MD Unavailable [phone] Encounter Details Date Type Department Care Team (Latest Contact Info) Description 01/25/2019 Orders Only [facility] Scanning, Provider Social History Tobacco Use Types Packs/Day Years Used Date Smoking Tobacco: Former Cigarettes Smokeless Tobacco: Never Comments No Sex and Gender Information Value Date Recorded Sex Assigned at Not on file 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 Gender Identity Not on file Sexual Orientation Not on file documented as of this encounter Plan of Treatment Not on file documented as of this encounter Procedures Procedure Name Priority Date/Time Associated Diagnosis Comments SCAN - RADIOLOGY/IMAGING 01/25/2019 documented in this encounter Results * SCAN - RADIOLOGY/IMAGING (01/25/2019) Anatomical Region Laterality Modality Other us Provider Scanning Final Result documented in this encounter Visit Diagnoses Not on filedocumented in this encounter Care Teams Cashier Office Relationship Specialty Start Date End Date Albert Palafox MD [address] [place] [address] PCP - General Family Medicine 08/19/16 MikYoon wells MD [address] [place] [address] Surgeon Breast Surgery 08/11/17 Maria Teresa Sevilla MD [address] [place] [address] Radiation Oncologist Radiation Oncology 08/11/17 Gaby Valdovinos, PhD [address] [place] [address] Nurse Practitioner Radiation Oncology 08/11/17 Pippa Miller MD PhD [address] [place] [address] Surgeon Surgical Oncology 12/15/17 07/08/21 Atilio Mccray MD [address] [place] [address] Referring Physician Medical Oncology 12/15/17 11/20/20 Rhiannon Womack NP [address] [place] [address] Nurse Practitioner Medical Oncology 12/15/17 08/15/19 Jeremy Rutledge MD [address] [place] [address] [place] [address] Consulting Physician Endocrinology 02/08/19 documented as of this encounter
[2024-12-20 12:24] VITALS: BP 142/68; PULSE 74; RESP 18; TEMP 36.7; O2SAT 100
[2024-12-20] MEDS: LACTATED RINGERS 1,000 ML 150 ML IV CONT (12:26)
--- NOTE | 2024-12-20 12:42 | WPDANESEPPF ---
Anes - Initial Pre Proc Eval Procedure: Operation Date: 12/20/24 13:30 Proposed Procedures p Screening Colonoscopy - Torres Oconnor MD Date/Time: 12/20/24 12:42 Surgeon: Torres Oconnor MD Pre Op Diagnosis: Personal history of colon polyps, unspecified Patient Data Age: 64 Gender: F Height: 1.7 m Weight: 103 kg Last Vital Signs Temp 98.0 F 12/20/24 12:24 Pulse 74 12/20/24 12:24 Resp 18 12/20/24 12:24 BP 142/68 H 12/20/24 12:24 Pulse Ox 100 12/20/24 12:24 O2 Del Method Room Air 12/20/24 12:24 Allergies Allergy/AdvReac Type Severity Reaction Status Date / Time No Known Allergies Allergy Verified 12/14/24 12:18 Home Medications ?Medication ?Instructions ?Recorded ?Confirmed ?Type levothyroxine 88 mcg tablet 88 mcg PO DAILY 08/23/19 12/20/24 History (Synthroid) lmksonimobvt-cpyw-cnnry acid 200 1 tablet PO DAILY 08/23/19 12/20/24 History mcg-lutein 137.5 mcg chewable tablet (Adult Multivitamin (w-lutein)) ascorbate calcium (vitamin C) 500 500 mg PO DAILY 06/10/23 12/20/24 History mg tablet biotin 1,000 mcg chewable tablet 1,000 mcg PO DAILY 06/10/23 12/20/24 History clotrimazole-betamethasone 1 1 applic topical BID 06/10/23 12/14/24 History %-0.05 % topical cream coenzyme Q10 100 mg capsule 100 mg PO DAILY 06/10/23 12/20/24 History glucosamine-chondroitin 1,500 mg 1,500 ml PO DAILY 06/10/23 12/20/24 History -1,200 mg/30 mL oral liquid ibuprofen 200 mg capsule 200 mg PO Q6H PRN fever or pain 06/10/23 12/14/24 History magnesium 250 mg tablet 250 mg PO DAILY 06/10/23 12/20/24 History potassium 99 mg tablet 99 mg PO DAILY 06/10/23 12/20/24 History Flax Seed Oil 1,200 mg PO DAILY #100 tabs 08/24/24 12/20/24 Rx acetaminophen 500 mg capsule 500 mg PO Q6H PRN fever or pain 08/24/24 12/20/24 History cholecalciferol (vitamin D3) 25 25 mcg PO DAILY 08/24/24 12/20/24 History mcg (1,000 unit) capsule garlic 5,000 mcg tablet 5 mg PO DAILY 08/24/24 12/20/24 History lysine 1,000 mg tablet 1,000 mg PO DAILY 08/24/24 12/20/24 History lisinopril 10 mg tablet 10 mg PO DAILY #90 tabs 11/26/24 12/20/24 Rx Patient hx anesthesia problems: none Family hx anesthesia problems: none Results Review: All pre-operative results and documents have been reviewed as part of the pre-operative evaluation. [facility] Past Medical History Medical History (Updated 10/26/24 @ 18:03 by Clara Valente PA-C) Essential hypertension History of breast cancer left invasive ductal carcinoma Hypothyroidism Surgical History Surgical History History of partial mastectomy of left breast 2018 History of section 1985 Family History Family History Father Cirrhosis of liver Mother Hypertension Hyperlipidemia Diabetes mellitus Breast cancer Social History Social History Smoking packs per day: 0.5 Smoking cigarettes per day: 10.0 Years smoked: 10 Smoking pack-years: 5.00 Smoking status: Former smoker Tobacco type: cigarettes Alcohol intake: never Substance use: never Substance use type: does not use Do You Feel Safe in your Home?: Yes Lack of Transportation: No Lack of Food: Never True Current Housing: I Have Housing Concerned About Future Housing: No Difficulty Paying Gas/Electric Bills: No Difficulty Paying for Meds: No Currently Unemployed: No Education: Trade/Vocational Certificate Difficulty w/ Childcare or Family Care: No Living arrangements: with family Occupation/Education: occupation Gender identity (if verbalized by the patient): Female Sexual Orientation (if Verbalized by the Patient): Straight or Heterosexual Spiritual care concerns: No Anes - Eval Final PreProcedure Day of Procedure 12/20/24 12:42 Patient weight: obese Heart: regular rate and rhythm Lungs: clear to auscultation Airway: Mallampati scale class II Neurological: alert and oriented Last oral intake: >/= 8 hours ASA classification: III Emergent: no Anesthetic plan: proceed Anesthesia type and monitoring: general GIVS and standard monitoring Results Review: All pre-operative results and documents have been reviewed as part of the pre-operative evaluation. Informed Consent: The patient's anesthetic plan and its attendant risks and benefits were discussed with the patient/family/POA. Questions were solicited and answers provided to the satisfaction of the patient/family/POA.
--- NOTE | 2024-12-20 13:10 | PM.HPGS ---
History of Present Illness History of Present Illness Consent: Risks, benefits, and alternatives have been discussed and questions answered. Patient agrees to proceed with procedure. Chief complaint: Personal history of colon polyps, unspecified Narrative: Laureen Thurston is a 64 year old female with colon polyp, last colonoscopy 2019 Review of Systems Review of Systems: All systems reviewed & are unremarkable except as noted in HPI and below PMFSH Past Medical History Medical History (Updated 12/20/24 @ 13:10 by Torres Oconnor MD) Colon polyp Essential hypertension History of breast cancer left invasive ductal carcinoma Hypothyroidism Surgical History Surgical History History of partial mastectomy of left breast 2018 History of section 1984 Family History Family History Father Cirrhosis of liver Mother Hypertension Hyperlipidemia Diabetes mellitus Breast cancer Social History Social History Smoking packs per day: 0.5 Smoking cigarettes per day: 10.0 Years smoked: 10 Smoking pack-years: 5.00 Smoking status: Former smoker Tobacco type: cigarettes Alcohol intake: never Substance use: never Substance use type: does not use Do You Feel Safe in your Home?: Yes Lack of Transportation: No Lack of Food: Never True Current Housing: I Have Housing Concerned About Future Housing: No Difficulty Paying Gas/Electric Bills: No Difficulty Paying for Meds: No Currently Unemployed: No Education: Trade/Vocational Certificate Difficulty w/ Childcare or Family Care: No Living arrangements: with family Occupation/Education: occupation Gender identity (if verbalized by the patient): Female Sexual Orientation (if Verbalized by the Patient): Straight or Heterosexual Spiritual care concerns: No Meds Home Medications and Allergies Home Medications ?Medication ?Instructions ?Recorded ?Confirmed ?Type levothyroxine 88 mcg tablet 88 mcg PO DAILY 08/23/19 12/20/24 History (Synthroid) rveomqagtlal-khpc-icxdd acid 200 1 tablet PO DAILY 08/23/19 12/20/24 History mcg-lutein 137.5 mcg chewable tablet (Adult Multivitamin (w-lutein)) ascorbate calcium (vitamin C) 500 500 mg PO DAILY 06/10/23 12/20/24 History mg tablet biotin 1,000 mcg chewable tablet 1,000 mcg PO DAILY 06/10/23 12/20/24 History clotrimazole-betamethasone 1 1 applic topical BID 06/10/23 12/14/24 History %-0.05 % topical cream coenzyme Q10 100 mg capsule 100 mg PO DAILY 06/10/23 12/20/24 History glucosamine-chondroitin 1,500 mg 1,500 ml PO DAILY 06/10/23 12/20/24 History -1,200 mg/30 mL oral liquid ibuprofen 200 mg capsule 200 mg PO Q6H PRN fever or pain 06/10/23 12/14/24 History magnesium 250 mg tablet 250 mg PO DAILY 06/10/23 12/20/24 History potassium 99 mg tablet 99 mg PO DAILY 06/10/23 12/20/24 History Flax Seed Oil 1,200 mg PO DAILY #100 tabs 08/24/24 12/20/24 Rx acetaminophen 500 mg capsule 500 mg PO Q6H PRN fever or pain 08/24/24 12/20/24 History cholecalciferol (vitamin D3) 25 25 mcg PO DAILY 08/24/24 12/20/24 History mcg (1,000 unit) capsule garlic 5,000 mcg tablet 5 mg PO DAILY 08/24/24 12/20/24 History lysine 1,000 mg tablet 1,000 mg PO DAILY 08/24/24 12/20/24 History lisinopril 10 mg tablet 10 mg PO DAILY #90 tabs 11/26/24 12/20/24 Rx Allergies Allergy/AdvReac Type Severity Reaction Status Date / Time No Known Allergies Allergy Verified 12/14/24 12:18 Vital Signs Vital Signs - 24 hr 12/20/24 12:24 Temperature 98.0 F Pulse Rate 74 Respiratory Rate 18 Blood Pressure 142/68 H Pulse Oximetry 100 Oxygen Delivery Room Air Exam Const: General: comfortable and no acute distress HENMT: Face/Nose/Sinus: Normal nares present Eyes: General: appearance normal, both eyes and all related structures Neck: Neck: no JVD Resp: Auscultation: clear to auscultation bilaterally Cardio: Rate: regular rate Rhythm: regular rhythm GI: Inspection: non-distended GI Palp: Yes Soft to palpation Skin: General skin exam: normal color Extrem: General: normal to inspection Psych: Mental Status: mental status grossly normal Assessment and Plan Assessment and plan (1) Colon polyp: Code(s): K63.5 - Polyp of colon Status: Acute Assessment and Plan: colonoscopy
--- NOTE | 2024-12-20 13:27 | S_PTH ---
PATIENT: Laureen Thurston LOC: [facility] Neil#:[id number] AGE/SX: 64/F ROOM: RE12/20/[address]: Torres Oconnor MD : 1960 BED: DIS: 12/20/2024 SPEC #: [id number] RECD: 12/20/24 14:40 STATUS: STEPHANIA REYefri #: [id number] NEIL: 12/20/24 13:[address]: Torres Oconnor DEPT: [facility] Surgical RECD BY: Nemo Peck ENTERED: 12/20/24 14:40 SP TYPE: Surgical OTHR DR: Albert Palafox MD Tissues: A - Colon Polypectomy Procedures: Hematoxylin and Eosin Stain Gross and Microscopic Level 4
[2024-12-20 13:29] VITALS: BP 110/56; PULSE 79; RESP 15; O2SAT 100
[2024-12-20 13:39] VITALS: BP 127/65; PULSE 70; RESP 22; O2SAT 100
[2024-12-20 13:49] VITALS: BP 131/68; PULSE 71; RESP 23; O2SAT 100
== END 2024-12-20 13:55 | disposition home or self-care (01) ==
PROVIDERS: PCP Family Medicine; Referring Provider Internal Medicine Gastroenterology; Visit Provider Internal Medicine Gastroenterology
PROC: 0DJD8ZZ Inspection of Lower Intestinal Tract, Via Natural or Artificial Opening Endoscopic (ICD-10-PCS; CPT 45378; principal; 2024-12-20 13:30)
DX: Z12.11 Encounter for screening for malignant neoplasm of colon (principal); K63.5 Polyp of colon; K64.8 Other hemorrhoids; K57.30 Diverticulosis of large intestine without perforation or abscess without bleeding; I10 Essential (primary) hypertension; E03.9 Hypothyroidism, unspecified; E66.9 Obesity, unspecified; Z68.35 Body mass index [BMI] 35.0-35.9, adult; Z79.1 Long term (current) use of non-steroidal anti-inflammatories (NSAID); Z98.890 Other specified postprocedural states; Z90.12 Acquired absence of left breast and nipple; Z87.891 Personal history of nicotine dependence; Z85.3 Personal history of malignant neoplasm of breast; Z80.3 Family history of malignant neoplasm of breast
CPT/HCPCS: 45385; 82948; 88305; J2704; J7120